=== PATIENT | male | born 1950 ===

== ENCOUNTER 2021-12-29 09:35 | Day surgery (SDC) | payer OTHER | END 2021-12-29 10:27 | disposition home or self-care (01) | LOC: AMB-ENDOS 09:35 → EDBD 13:00 | PROVIDERS: ATTEND Surgery | DX: D12.5 Benign neoplasm of sigmoid colon (principal); K57.30 Diverticulosis of large intestine without perforation or abscess without bleeding; Z20.822 Contact with and (suspected) exposure to COVID-19; E78.5 Hyperlipidemia, unspecified; I10 Essential (primary) hypertension; Z79.84 Long term (current) use of oral hypoglycemic drugs; E11.9 Type 2 diabetes mellitus without complications ==